=== PATIENT | female | born 1940 | race Caucasian/White ===

== ENCOUNTER 2022-02-11 14:34 | Inpatient (IN) | payer MEDICARE, BC ==
[~2022-02-11] VITALS: Ht 154.9 cm; Wt 58.5 kg
--- NOTE | 2022-02-11 14:50 | NUR ---
BIB FAMILY C/O GENERALIZED WEAKNESS, WAS HAVING CHILLS ON THE WAY TO MD APPOINTMENT
[2022-02-11] MEDS ORDERED: ACETAMINOPHEN 325 MG TABLET PO ONE (15:30)
[2022-02-11] MEDS ORDERED: IBUPROFEN 600 MG TABLET PO ONE (15:30)
[2022-02-11] MEDS ORDERED: IV NS 0.9% 1,000 ML BAG IV ONE (15:30)
[2022-02-11 16:26] LABS: BASOPHILS # (AUTO) 0.1 K/uL (0.0-0.2); BASOPHILS % (AUTO) 0.8 % (0.0-2.0); EOSINOPHILS % (AUTO) 0.2 % (0.0-6.0); HEMATOCRIT 35 % (33-45); HEMOGLOBIN 11.7 g/dL (11.5-14.8); LYMPHOCYTES # (AUTO) 0.2 K/uL (0.8-4.8); LYMPHOCYTES % (AUTO) 2.1 % (20.0-44.0); MEAN CORPUSCULAR HGB CONC 33 g/dl (31.0-36.0); MEAN CORPUSCULAR VOLUME 107 fL (82-100); MONOCYTES # (AUTO) 1.1 K/uL (0.1-1.30); MONOCYTES % (AUTO) 10.5 % (2.0-12.0); NEUTROPHILS # (AUTO) 8.8 K/uL (1.8-8.9); NEUTROPHILS % (AUTO) 86.4 % (43.0-81.0); PLATELET COUNT (AUTO) 168 K/uL (150-450); RED BLOOD CELL COUNT(AUTO) 3.32 MIL/uL (4.0-5.2); WHITE BLOOD COUNT (AUTO) 10.2 K/uL (4.3-11.0)
[2022-02-11] MEDS ORDERED: IBUPROFEN 600 MG TABLET ONE (16:42)
[2022-02-11] MEDS ORDERED: ACETAMINOPHEN 325 MG TABLET ONE (16:42)
[2022-02-11 16:47] LABS: ALANINE AMINOTRANSFERASE 93 U/L (12-78); ALBUMIN 2.4 g/dL (3.4-5.0); ALKALINE PHOSPHATASE 315 U/L (46-116); ASPARTATE AMINOTRANSFERASE 45 U/L (15-37); BILIRUBIN,DIRECT 2.5 mg/dL (0.0-0.2); BILIRUBIN,TOTAL 3.5 mg/dL (0.2-1.0); CALCIUM, SERUM 9.1 mg/dL (8.5-10.1); CARBON DIOXIDE 32 mmol/L (21-32); CHLORIDE 100 mmol/L (98-107); CREATININE 0.7 mg/dL (0.6-1.3); GLUCOSE 120 mg/dL (74-106); POTASSIUM 3.6 mmol/L (3.5-5.1); SODIUM SERUM 134 mmol/L (136-145); TOTAL PROTEIN, SERUM 5.8 g/dL (6.4-8.2); UREA NITROGEN, BLOOD 14 mg/dL (7-18)
--- NOTE | 2022-02-11 19:28 | NUR ---
PT REFUSED IN AND OUT CATHETER.
[2022-02-11 19:51] LABS: SERUM AMMONIA 68 umol/L (11-32)
--- NOTE | 2022-02-11 20:11 | NUR ---
ATTILA OF GALLBLADDER DONE AT BEDSIDE
[2022-02-11 20:27] LABS: LIPASE 68 U/L (73-393)
--- NOTE | 2022-02-11 23:11 | NUR ---
REPORT GIVEN TO LEILANI COURTNEY
[2022-02-11] MEDS ORDERED: MAGNESIUM HYDROXIDE 30 ML UDC PO PRN (23:30)
[2022-02-11] MEDS ORDERED: Z GUARD REMEDY 4 OZ OINT TP PRN (23:30)
[2022-02-11] MEDS ORDERED: MAG HYDROX/AL HYDROX/SIMETH 30 ML UDC PO PRN (23:30)
--- NOTE | 2022-02-11 23:52 | NUR ---
TRANSFERRED PT TO ROOM
--- NOTE | 2022-02-11 23:55 | NUR ---
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 Patient with eyes closed but able to answer simple questions. Totally dependent on all aspects of ADLs. On room air with O2 saturation of 96%. Vital signs taken and recorded. Noted with low grade fever 100.3. Admission care and skin assessment done. Noted with blanchable redness on coccyx area. Right chest wall port a cath intact with clean dressing. Noted with edema on left arm and bilateral lower extremities. Bed bath provided. Turned and repositioned for skin management. Call light placed within reach, bed alarm turned on for safety.
[2022-02-12] VITALS: BP 132/78
--- NOTE | 2022-02-12 00:25 | NUR ---
0025 Dr. Hogan at bedside and assessed patient, made her aware patient has no peripheral IV access with order to use right chest port a cath as IV access for now.
[2022-02-12] MEDS: IV NS 0.9% 1,000 ML IV PRN ×2 (00:38→18:41)
[2022-02-12] MEDS: ENOXAPARIN SODIUM 40 MG/0.4 ML DISP.SYRIN SQ SCH ×2 (00:40→22:04)
[2022-02-12] MEDS ORDERED: LACTULOSE 10 G/15 ML UDC (PYXIS) PO ONE (01:00)
--- NOTE | 2022-02-12 06:44 | NUR ---
MS RN CLOSING NOTES - PATIENT IN BED SLEEPING, EASY TO AROUSE. A/O X1, NEEDS FREQUENT REORIENTATION. ABLE TO VERBALIZE NEEDS. BREATHING EVEN AND NON-LABORED ON ROOM AIR. NO ACUTE EVENTS THROUGHOUT THE NIGHT. DENIES PAIN AT THIS TIME. AFEBRILE. NO IV ACCESS. HAS RIGHT CHEST WALL PORT-A-CATH WITH NS RUNNING AT 75 ML/HR. INTACT, PATENT AND FLUSHING. DRESSING C/D/I. ABLE TO AMBULATE TO RESTROOM WITH STAND BY ASSIST. ALL DUE MEDS GIVEN AND NEEDS ATTENDED. SAFETY PRECAUTIONS IN PLACE: BED LOCKED AND IN LOW POSITION, SIDE RAILS UP X3, CALL LIGHT WITHIN REACH. WILL ENDORSE TO NEXT SHIFT FOR CONTINUITY OF CARE.
[2022-02-12 07:25] LABS: BASOPHILS % (AUTO) 0.1 % (0.0-2.0); EOSINOPHILS % (AUTO) 0.1 % (0.0-6.0); HEMATOCRIT 34 % (33-45); HEMOGLOBIN 11.2 g/dL (11.5-14.8); LYMPHOCYTES # (AUTO) 0.3 K/uL (0.8-4.8); LYMPHOCYTES % (AUTO) 3.7 % (20.0-44.0); MEAN CORPUSCULAR HGB CONC 33 g/dl (31.0-36.0); MEAN CORPUSCULAR VOLUME 107 fL (82-100); MONOCYTES % (AUTO) 12.6 % (2.0-12.0); NEUTROPHILS # (AUTO) 6.8 K/uL (1.8-8.9); NEUTROPHILS % (AUTO) 83.5 % (43.0-81.0); PLATELET COUNT (AUTO) 173 K/uL (150-450); RED BLOOD CELL COUNT(AUTO) 3.15 MIL/uL (4.0-5.2); WHITE BLOOD COUNT (AUTO) 8.1 K/uL (4.3-11.0)
[2022-02-12 07:33] LABS: SERUM AMMONIA 28 umol/L (11-32)
[2022-02-12 07:49] LABS: ALANINE AMINOTRANSFERASE 78 U/L (12-78); ALBUMIN 2.1 g/dL (3.4-5.0); ALKALINE PHOSPHATASE 278 U/L (46-116); ASPARTATE AMINOTRANSFERASE 39 U/L (15-37); BILIRUBIN,DIRECT 2.5 mg/dL (0.0-0.2); BILIRUBIN,TOTAL 3.4 mg/dL (0.2-1.0); CALCIUM, SERUM 8.5 mg/dL (8.5-10.1); CARBON DIOXIDE 29 mmol/L (21-32); CHLORIDE 104 mmol/L (98-107); CREATININE 0.8 mg/dL (0.6-1.3); GLUCOSE 133 mg/dL (74-106); PHOSPHORUS 2.9 mg/dL (2.5-4.9); POTASSIUM 3.7 mmol/L (3.5-5.1); SODIUM SERUM 137 mmol/L (136-145); TOTAL PROTEIN, SERUM 5.4 g/dL (6.4-8.2); UREA NITROGEN, BLOOD 12 mg/dL (7-18)
--- NOTE | 2022-02-12 07:50 | NUR ---
SPRAY APPLICATOR NOTES Received pt awake in bed AOx1. No signs of plain or discomfort at this time. Pt is on RA and tolerating it welll with 02 saturation at 97%. IV access on R chest wall permacath running NS at 75cc/hr patent and intact. HOB elevated to pts comfort. Siderails up at all times. Call light within reach,. Will anticipate needs.
[2022-02-12] MEDS: PANTOPRAZOLE 40 MG TABLET.DR PO SCH (08:16)
[2022-02-12 08:17] LABS: THYROID STIMULATING HORMONE 2.178 uIU/mL (0.358-3.74)
[2022-02-12] MEDS ORDERED: POTA-88 PO (08:30)
[2022-02-12] MEDS ORDERED: APIX5TAB PO (08:30)
[2022-02-12] MEDS ORDERED: RISP0.2515 PO (08:30)
[2022-02-12] MEDS ORDERED: MEMA28CA PO (08:30)
[2022-02-12] MEDS ORDERED: METO-358 PO (08:30)
[2022-02-12] MEDS ORDERED: FURO20TA4 PO (08:30)
[2022-02-12] MEDS ORDERED: ONDA8TAB65 PO (08:30)
--- NOTE | 2022-02-12 12:23 | NUR ---
FARM REPORTER NOTES PATIENT OUT TO MRI.
--- NOTE | 2022-02-12 13:10 | NUR ---
RN NOTES PATIENT BACK FROM MRI, ECHO DONE. PLAN OF CARE CONTINUED.
--- NOTE | 2022-02-12 14:00 | NUR ---
RN NOTES URINE SAMPLE COLLECTED, PLACED IN THE FRIDGE AND CALLED LAB FOR COUNTER MAKER. PLAN OF CARE CONTINUE.
--- NOTE | 2022-02-12 15:00 | NUR ---
RN NOTES PATIENT NOTED WITH SHIVERING, NO FEVER NOTED, DR. GELLER NOTIFIED, NO NEW ORDER.
[2022-02-12 17:08] LABS: BILIRUBIN,URINE 2+ (NEGATIVE); COLOR,URINE YELLOW (YELLOW); LEUKOCYTE ESTERASE ,URINE NEGATIVE (NEGATIVE); NITRITE, URINE NEGATIVE (NEGATIVE); PH,URINE 6.5 (5.0-8.0); PROTEIN,URINE 2+ mg/dl (NEGATIVE); UGLUCOSE TRACE mg/dL (NEGATIVE); UROBILINOGEN,URINE >=8.0 EU/dL (0.2)
--- NOTE | 2022-02-12 17:19 | NUR ---
RN NOTES UA RESULTS RECEIVED DR. GELLER NOTIFIED, NO NEW ORDER, ID AND GI CONSULT PLACED. PLAN OF CARE CONTINUE. Addendum: 02/12/22 at 1721 by WAYLON ROMANO RN NO SHIVERING EPISODED NOTED AT THIS TIME.
--- NOTE | 2022-02-12 17:22 | NUR ---
VICTORINA NOTES Pt started HD. Addendum: 02/12/22 at 1828 by HASMUKH MAN LVN Accidentally input on wrong pt. Pt is not on HD.
[2022-02-12] MEDS: ONDANSETRON HCL/PF 4 MG/2 ML VIAL IVP PRN (18:01)
--- NOTE | 2022-02-12 18:28 | NUR ---
REGIONAL ACCOUNT DIRECTOR CLOSING NOTES Pt remains in stable condition. Restraints taken off due to son at bedside watching her. No complaints of pain or discomfort at this time. IV access on FATEMEH midline patent and intact. Pt is on room air and tolerating it well. HOB elevated to 30-45 degrees. Siderails up at all times and on its lowest setting and locked. Call light within reach. Will endorse to oncoming nurse.
--- NOTE | 2022-02-12 19:00 | NUR ---
RN NOTES: RECEIVED AWAKE ON BED, HIGH FOWLERS POSITION, PRESENT AT BED SIDE, DIALYSIS IS ON GOING VIA PORT A CATH ON THE RIGHT CHEST WALL, DRESSING IS DRY AND INTACT, A/O TO SELF ONLY, [place] SPEAKING, RESPOND YES OR NO, RARELY COMMUNICATE VERBALLY,ON ROOM AIR, SPO2-97%,NON LABORED BREATHING, NO SOB, EDEMA ON BUE AND BLE, SHE HAS SACRAL REDNESS PER ENDORSEMENT, FOR LABS IN THE MORNING,FATEMEH ML INTACT. FOR POSSIBLE EGD WITH PEG INSERTION, STILL AWAITING FOR CONFIRMATION, TO OBTAIN CONSENT. Addendum: 02/13/22 at 0031 by ECHO ESCAMILLA RN ADDED NOTES: PER MORNING ENDORSEMENT HE IS FOR PEG INSERTION TOMORROW AT 11AM,TO GET CONSENT FROM . Addendum: 02/13/22 at 0216 by ECHO ESCAMILLA RN ADDED NOTES: WRONG ENTRY OF CHARTING FOR 111 NOT 104.
--- NOTE | 2022-02-12 19:01 | NUR ---
RN NOTES: RECEIVED AWAKE ON BED, A/OX 1 ONLY DUE TO DEMENTIA, ORIENTED TO UNIT AND STAFF, SON PRESENT AT BED SIDE UPON ENDORSEMENT, ON CONTATC AND DROPLET PRECAUTION DUE TO SUSPECTED FOR COVID 19, RAPID(-), PCR RESULT PENDING, ON RA 98%M PORT A CATH NEEDLE FOR REINSERTION BY CN IN MORNING SHIFT(FOR HER CHEMO TREATMENT), FATEMEH ML G#18 PATENT,IVF NS AT 75 ML/HR ONGOING, NO BP, NO IV CANULATION ON LEFT ARM, BILATERAL RESTRAINT REMOVE TEMPORARILY WHILE SON IS PRESENT,ABLE TO AMBULATE WITH ASSIST, PENDING GI AND ID CONSULT.FOR POSSIBLE D/C TOMORROW.
[2022-02-12 20:00] VITALS: BP 125/82
--- NOTE | 2022-02-12 20:22 | NUR ---
RN NOTES: AROUND 1933 ERIC-DIALYSIS NURSE REQUEST TO PULL OUT NS FROM [place] TO USE FOR PATIENT DIALYSIS-TAKEN BY RN FROM [facility] AND GIVEN TO DIALYSIS NURSE. Addendum: 02/12/22 at 2027 by ECHO ESCAMILLA RN WRONG ENTRY NOT FOR THIS PATIENT ITS FOR 111
--- NOTE | 2022-02-12 20:25 | NUR ---
RN NOTES: 1936PM DIALYSIS COMPLETED, OUTPUT-2 LITERS OSITO-150/70 TN-94 PATIENT IS STABLE DUE FOR ANOTHER SESSION TOMORRO WEDNESDAY. Addendum: 02/12/22 at 2028 by ECHO ESCAMILLA RN WRONG ENTRY NOT FOR THIS PATIENT IS FOR 111
--- NOTE | 2022-02-12 20:37 | NUR ---
RN NOTES: ID CAME TO SEE THE PATIENT, PCR RESULT IS (-) PER CN.
--- NOTE | 2022-02-12 21:55 | NUR ---
RN NOTES: ASSISTED TO THE BATHROOM, SHE PEE,IVF RESUMED AFTER, THEN SOFT RESTRAINED IN PLACE AFTER HIS SON LEFT AWHILE AGO.ON CLOSE VISUAL CHECK, A/OX1 ONLY, WITH PERIODS OF CONFUSION.
[2022-02-12] MEDS ORDERED: MEROPENEM 500 MG in IV NS 0.9% 50 ML IV ONE (22:00)
[2022-02-12] MEDS ORDERED: MEROPENEM 500 MG VIAL IV ONE (22:18)
--- NOTE | 2022-02-12 22:23 | NUR ---
RN NOTES: NEW ORDER TO GIVE MERRIM 500 MG, CN MADE AWARE. -MEDICATION PULLED IN THE OMNICEL BY CHARGE NURSE AND NSG HOCKEY INSTRUCTOR, TO BE MIX IN 50 ML OF NS, PULLED OUT IN THE IV OMNICELL NS 100ML IS AVAILABLE ONLY, CN MADE AWARE AND REMOVE 50 ML THEN MIX, SHOWN TO CN. -FIRST DOSE GIVEN MERRIN 500 MG MIX IN NS 50 ML OF NS AT 100ML/HR VIA INFUSION PUMP.
--- NOTE | 2022-02-13 02:13 | NUR ---
RN NOTES: AWAKE, ASSISTED TO BED SIDE COMMODE, PEE VERY LITTLE, IVF ONGOING, REMOVE SOFT RESTRAINT IN BETWEEN, COOPERATIVE TO CARE, NOT PULLING OUT HER IV CANNULA, CLEAN AND CHANGE.
[2022-02-13 04:00] VITALS: BP 138/65
--- NOTE | 2022-02-13 04:46 | NUR ---
RN NOTES: AWAKE IN BETWEEN, TRYING TO GTE UP FROM HER BED, SHE REFUSED FOR SOFT RESTRAINT SHE GET AGITATED SHE WANT IT TO BE REMOVE, SHE AGREE NOT TO GET UP LONG RESTRAINT IS REMOVED, BED ALARM ON, UNABLE TO RETAIN INFORMATION SECONDARY TO DEMENTIA. ON CLOSE VISUAL CHECK.
[2022-02-13 06:21] LABS: BASOPHILS % (AUTO) 0.1 % (0.0-2.0); EOSINOPHILS % (AUTO) 0.2 % (0.0-6.0); HEMATOCRIT 33 % (33-45); HEMOGLOBIN 10.9 g/dL (11.5-14.8); LYMPHOCYTES # (AUTO) 0.4 K/uL (0.8-4.8); LYMPHOCYTES % (AUTO) 4.3 % (20.0-44.0); MEAN CORPUSCULAR HGB CONC 33 g/dl (31.0-36.0); MEAN CORPUSCULAR VOLUME 108 fL (82-100); MONOCYTES # (AUTO) 1.6 K/uL (0.1-1.30); NEUTROPHILS # (AUTO) 7.8 K/uL (1.8-8.9); NEUTROPHILS % (AUTO) 79.4 % (43.0-81.0); PLATELET COUNT (AUTO) 166 K/uL (150-450); RED BLOOD CELL COUNT(AUTO) 3.04 MIL/uL (4.0-5.2); WHITE BLOOD COUNT (AUTO) 9.8 K/uL (4.3-11.0)
--- NOTE | 2022-02-13 06:37 | NUR ---
RN NOTES: AWAKE IN BETWEEN, IVF ONGOING, NO COMPLAINTS OF ANY PAIN OR DISCOMFORT, ABLE TO WALK GOING TO THE BATHROOM, NO SYNCOPE ATTACK, NO LABS IN THE MORNING, ON CLOSE WATCH, ENDORSED FOR CONTINUITY OF CARE.
[2022-02-13 07:10] LABS: CALCIUM, SERUM 8.5 mg/dL (8.5-10.1); CREATININE 0.7 mg/dL (0.6-1.3); MAGNESIUM 2.2 mg/dL (1.8-2.4); PHOSPHORUS 2.4 mg/dL (2.5-4.9); POTASSIUM 3.4 mmol/L (3.5-5.1)
--- NOTE | 2022-02-13 07:17 | NUR ---
RN OPENING NOTES Received pt awake in bed AOx1, No signs of ling n or discomfort at this time. Pt is on RA and tolerating it well, no sob noted, respiration even and unlabored. FATEMEH MIDLINE NOTED PATENT AND INTACT, WITH IV NS RUNNING AT 75ML/HR. HOB elevated to patient comfort. Siderails up at all times. BED ALARM ON. Call light within reach. PLAN OF CARE CONTINUE.
[2022-02-13] MEDS: PANTOPRAZOLE 40 MG TABLET.DR PO SCH (07:41)
[2022-02-13] MEDS: IV NS 0.9% 1,000 ML IV PRN (09:49)
[2022-02-13] MEDS ORDERED: POTASSIUM CHLORIDE 20 MEQ TAB.PRT.SR PO SCH (10:30)
--- NOTE | 2022-02-13 10:40 | NUR ---
DR. TREVINO AT THE BEDSIDE, VERBALLY ORDER TO HOLD ELIQUIS DUE TO PATIENT MIGHT HAVE BILIARY STENT REPLACEMENT, NOTED AND CARRIED OUT. WILL ENDORSE TO COUNTERSINKER BALANCE SCREW HOLE NURSE.
[2022-02-13] MEDS: MEROPENEM 500 MG in IV NS 0.9% 50 ML IV SCH ×2 (13:00→20:40)
[2022-02-13 13:23] VITALS: BP 148/85
[2022-02-13] MEDS: ACETAMINOPHEN 325 MG TABLET PO PRN (15:21)
[2022-02-13] MEDS ORDERED: K PHOS NEUTRAL 250 MG TABLET PO ONE (16:00)
[2022-02-13] MEDS: APIXABAN 5 MG TABLET PO SCH (16:03)
[2022-02-13] MEDS: risperiDONE 0.25 MG TABLET PO SCH (16:07)
[2022-02-13] MEDS: MEMANTINE HCL 5 MG TABLET PO SCH (16:07)
[2022-02-13] MEDS: METOPROLOL SUCCINATE 50 MG TAB.SR.24H PO SCH (16:19)
--- NOTE | 2022-02-13 17:00 | NUR ---
HELD 1700 ELIQUIS DUE PER MD'S ORDER.
[2022-02-13] MEDS: POTASSIUM CHLORIDE 20 MEQ TAB.PRT.SR PO SCH (17:07)
[2022-02-13] MEDS: FUROSEMIDE 20 MG TABLET PO SCH (17:07)
--- NOTE | 2022-02-13 18:08 | NUR ---
RN CLOSING NOTES PATIENT IN BED AWAKE, SON AT THE BEDSIDE, No signs of ling n or discomfort at this time. Pt is on RA and tolerating it well, no sob noted, respiration even and unlabored. FATEMEH MIDLINE NOTED PATENT AND INTACT, FLUSHES WELL, WITH IV NS RUNNING AT 75ML/HR. HOB elevated to patient comfort. Siderails up at all times. BED ALARM ON. Call light within reach. WILL ENDORSE TO NIGHT NURSE FOR JOHN.
--- NOTE | 2022-02-13 20:11 | NUR ---
RN OPENING NOTE PATIENT SLEEPING IN BED, ALERT TO NAME, CONFUSED, SON WAS AT BEDSIDE BUT LEFT. PT STABLE ON RA, NO S/S OF DISTRESS OR SOB NOTED, BREATHING EVEN AND UNLABORED. IV ACCESS ON FATEMEH ML INTACT AND INFUSING NS @ 75 ML/HR. SAFETY MEASURES IN PLACE: CALL LIGHT WITHIN REACH, SIDE RAILS UP X 3, BED LOCKED IN LOWEST POSITION, HOB ELEVATED, BED ALARM ON. WILL CONTINUE TO MONITOR PATIENT
[2022-02-13 20:33] VITALS: BP 113/79
[2022-02-13] MEDS: ZOLPIDEM TARTRATE 5 MG TABLET PO PRN (22:23)
--- NOTE | 2022-02-14 00:20 | NUR ---
RN NOTE LAB CALLED REGARDING BLOOD CULTURES ON 02/12 AT 2240. AEROBIC AND ANAEROBIC GROWING GRAM NEGATIVE ORGANISMS. NOTIFIED FIRE ADJUSTER JENIFER CEBALLOS, NO NEW ORDERS AT THIS TIME
[2022-02-14 04:00] VITALS: BP 140/86
[2022-02-14] MEDS: MEROPENEM 500 MG in IV NS 0.9% 50 ML IV SCH ×3 (05:34→21:00)
[2022-02-14 05:40] LABS: BAND % (MANUAL) 4 % (0.0-5.0); EOSINOPHILS % (MANUAL) 0 % (0-4); LYMPHOCYTES % (MANUAL) 3 % (16-48); MONOCYTES % (MANUAL) 15 % (0-11.0); NEUTROPHILS % (MANUAL) 78 (42-76)
[2022-02-14 05:49] LABS: BASOPHILS % (AUTO) 0.2 % (0.0-2.0); EOSINOPHILS % (AUTO) 0.3 % (0.0-6.0); HEMATOCRIT 37 % (33-45); HEMOGLOBIN 12.3 g/dL (11.5-14.8); LYMPHOCYTES # (AUTO) 0.4 K/uL (0.8-4.8); LYMPHOCYTES % (AUTO) 4.4 % (20.0-44.0); MEAN CORPUSCULAR HGB CONC 33 g/dl (31.0-36.0); MEAN CORPUSCULAR VOLUME 107 fL (82-100); MONOCYTES # (AUTO) 1.6 K/uL (0.1-1.30); MONOCYTES % (AUTO) 17.4 % (2.0-12.0); NEUTROPHILS # (AUTO) 7.2 K/uL (1.8-8.9); NEUTROPHILS % (AUTO) 77.7 % (43.0-81.0); PLATELET COUNT (AUTO) 210 K/uL (150-450); RED BLOOD CELL COUNT(AUTO) 3.46 MIL/uL (4.0-5.2); WHITE BLOOD COUNT (AUTO) 9.2 K/uL (4.3-11.0)
[2022-02-14 06:06] LABS: ALBUMIN 2.3 g/dL (3.4-5.0); BILIRUBIN,DIRECT 2.3 mg/dL (0.0-0.2); CALCIUM, SERUM 8.4 mg/dL (8.5-10.1); CREATININE 0.7 mg/dL (0.6-1.3); MAGNESIUM 1.8 mg/dL (1.8-2.4); PHOSPHORUS 2.7 mg/dL (2.5-4.9); POTASSIUM 3.4 mmol/L (3.5-5.1)
--- NOTE | 2022-02-14 07:46 | NUR ---
MS RN CLOSING NOTE PATIENT AWAKE IN BED, ALERT TO NAME, CONFUSED, PT CONTINUOUSLY GETTING OUT OF BED ALL SHIFT, VERY FORGETFUL. PT STABLE ON RA, NO S/S OF DISTRESS OR SOB NOTED, BREATHING EVEN AND UNLABORED. IV ACCESS ON FATEMEH ML INTACT AND INFUSING NS @ 75 ML/HR. MEDICATIONS GIVEN ORDERED, PT NEEDS MET THROUGHOTU SHIFT. SAFETY MEASURES IN PLACE: CALL LIGHT WITHIN REACH, SIDE RAILS UP X 3, BED LOCKED IN LOWEST POSITION, HOB ELEVATED, BED ALARM ON. ENDORSED TO DAYSHIFT RN FOR CONTINUITY OF CARE
--- NOTE | 2022-02-14 07:48 | NUR ---
ms rn received on bed, awake,confuse,not in any form of distress, respirations even and unlabored,no sob noted, lungs are clear,abdomen soft,positve bowel sounds,denies pain at this time, will monitor patient's condition,all needs attended.
[2022-02-14 08:00] VITALS: BP 127/87
[2022-02-14] MEDS: APIXABAN 5 MG TABLET PO SCH ×2 (08:26→16:41)
[2022-02-14] MEDS: MEMANTINE HCL 5 MG TABLET PO SCH ×2 (08:29→18:09)
[2022-02-14] MEDS: risperiDONE 0.25 MG TABLET PO SCH ×2 (08:29→18:11)
[2022-02-14] MEDS: PANTOPRAZOLE 40 MG TABLET.DR PO SCH (08:29)
[2022-02-14] MEDS: METOPROLOL SUCCINATE 50 MG TAB.SR.24H PO SCH (08:30)
[2022-02-14] MEDS ORDERED: METOPROLOL SUCCINATE 50 MG TAB.SR.24H PO SCH (09:00)
--- NOTE | 2022-02-14 09:00 | NUR ---
ms shawn mendez served,due meds given,tolerated well.son at bedside.
[2022-02-14 09:17] LABS: BAND % (MANUAL) 3 % (0.0-5.0); BASOPHILS % (MANUAL) 0 % (0.0-2.0); EOSINOPHILS % (MANUAL) 4 % (0-4); LYMPHOCYTES % (MANUAL) 9 % (16-48); MONOCYTES % (MANUAL) 6 % (0-11.0); NEUTROPHILS % (MANUAL) 78 (42-76)
[2022-02-14 12:00] VITALS: BP 148/92
--- NOTE | 2022-02-14 14:04 | NUR ---
patient confused,pulled iv out,unable to ff commands.per md jones,nursing sup notified,fall risk precaution observed.
--- NOTE | 2022-02-14 17:00 | NUR ---
ms rn new midline inserted at right upper arm, patient started on bilateral soft wrist restraint, son aware.
[2022-02-14] MEDS: FUROSEMIDE 20 MG TABLET PO SCH (18:09)
[2022-02-14] MEDS: POTASSIUM CHLORIDE 20 MEQ TAB.PRT.SR PO SCH (18:09)
--- NOTE | 2022-02-14 18:18 | NUR ---
ms rn patient on bed, no distress noted.
--- NOTE | 2022-02-14 19:51 | NUR ---
noc rn opening note received patient in bed alert and oriented to self. bilateral soft wrist restraints in place. left arm noted to be swollen. no fluids running at this time on r.ua midline. denies any pain at this time. safety in place. will continue with the plan of care for patient.
[2022-02-14 20:00] VITALS: BP 145/87
[2022-02-14] MEDS: ZOLPIDEM TARTRATE 5 MG TABLET PO PRN (22:02)
--- NOTE | 2022-02-14 22:03 | NUR ---
noc rn note patient agreed on taking ambien per nurse clinical assessment. given ambien 5mg as ordered PRN. Patient restraints taken off for now and will monitor.
[2022-02-15 04:00] VITALS: BP 149/90
[2022-02-15] MEDS: MEROPENEM 500 MG in IV NS 0.9% 50 ML IV SCH ×3 (05:13→20:07)
[2022-02-15 06:15] LABS: BASOPHILS % (AUTO) 0.2 % (0.0-2.0); EOSINOPHILS % (AUTO) 0.2 % (0.0-6.0); HEMATOCRIT 32 % (33-45); HEMOGLOBIN 10.7 g/dL (11.5-14.8); LYMPHOCYTES # (AUTO) 0.5 K/uL (0.8-4.8); LYMPHOCYTES % (AUTO) 6.4 % (20.0-44.0); MEAN CORPUSCULAR HGB CONC 34 g/dl (31.0-36.0); MEAN CORPUSCULAR VOLUME 107 fL (82-100); MONOCYTES # (AUTO) 1.3 K/uL (0.1-1.30); MONOCYTES % (AUTO) 16.3 % (2.0-12.0); NEUTROPHILS # (AUTO) 6.1 K/uL (1.8-8.9); NEUTROPHILS % (AUTO) 76.9 % (43.0-81.0); PLATELET COUNT (AUTO) 145 K/uL (150-450); RED BLOOD CELL COUNT(AUTO) 2.97 MIL/uL (4.0-5.2)
[2022-02-15 06:48] LABS: ALANINE AMINOTRANSFERASE 49 U/L (12-78); ALBUMIN 1.7 g/dL (3.4-5.0); ALKALINE PHOSPHATASE 232 U/L (46-116); ASPARTATE AMINOTRANSFERASE 96 U/L (15-37); BILIRUBIN,TOTAL 2.6 mg/dL (0.2-1.0); CALCIUM, SERUM 7.7 mg/dL (8.5-10.1); CARBON DIOXIDE 25 mmol/L (21-32); CHLORIDE 104 mmol/L (98-107); CREATININE 0.5 mg/dL (0.6-1.3); GLUCOSE 102 mg/dL (74-106); MAGNESIUM 1.8 mg/dL (1.8-2.4); PHOSPHORUS 2.8 mg/dL (2.5-4.9); POTASSIUM 5.1 mmol/L (3.5-5.1); SODIUM SERUM 136 mmol/L (136-145); TOTAL PROTEIN, SERUM 5.3 g/dL (6.4-8.2); UREA NITROGEN, BLOOD 9 mg/dL (7-18)
--- NOTE | 2022-02-15 06:48 | NUR ---
noc rn note patient in bed with eyes closed, easy to arouse. no s/s of apparent distress on room air. no c/o pain at this time. on restraint vacation at this time. no fluids running at this time. all needs attended. all scheduled medication administered. safety kept in place the whole shift. will endorse to morning shift RN for continuity of patient care.
--- NOTE | 2022-02-15 07:30 | NUR ---
RN OPENING NOTE PATIENT AWAKE, ALERT TO NAME, CONFUSED. PT STABLE ON RA, NO S/S OF DISTRESS OR SOB NOTED, BREATHING EVEN AND UNLABORED. IV ACCESS ON FATEMEH ML INTACT. RESTRAINT NOT IN PLACED. SAFETY MEASURES IN PLACE: CALL LIGHT WITHIN REACH, SIDE RAILS UP X 3, BED LOCKED IN LOWEST POSITION, HOB ELEVATED, BED ALARM ON. PLAN OF CARE CONTINUE.
[2022-02-15] MEDS: PANTOPRAZOLE 40 MG TABLET.DR PO SCH (07:47)
[2022-02-15] MEDS: APIXABAN 5 MG TABLET PO SCH ×2 (08:05→16:01)
[2022-02-15] MEDS: MEMANTINE HCL 5 MG TABLET PO SCH ×2 (08:05→16:45)
[2022-02-15] MEDS: risperiDONE 0.25 MG TABLET PO SCH ×2 (08:05→16:45)
[2022-02-15] MEDS: METOPROLOL SUCCINATE 50 MG TAB.SR.24H PO SCH (08:05)
[2022-02-15 10:36] LABS: BAND % (MANUAL) 1 % (0.0-5.0); BASOPHILS % (MANUAL) 0 % (0.0-2.0); EOSINOPHILS % (MANUAL) 0 % (0-4); LYMPHOCYTES % (MANUAL) 8 % (16-48); MONOCYTES % (MANUAL) 21 % (0-11.0); NEUTROPHILS % (MANUAL) 70 (42-76)
[2022-02-15 16:00] VITALS: BP 144/88
[2022-02-15] MEDS: POTASSIUM CHLORIDE 20 MEQ TAB.PRT.SR PO SCH (17:04)
[2022-02-15] MEDS: FUROSEMIDE 20 MG TABLET PO SCH (17:05)
[2022-02-15] MEDS: ACETAMINOPHEN 325 MG TABLET PO PRN (17:52)
[2022-02-15] MEDS: ONDANSETRON HCL/PF 4 MG/2 ML VIAL IVP PRN (17:52)
--- NOTE | 2022-02-15 18:16 | NUR ---
RN CLOSING NOTE PATIENT AWAKE, ALERT TO NAME, CONFUSED, SON AT THE BEDSIDE, EPISODES OF WANTING TO WANDER AROUND, REDIRECT PATIENT. PT STABLE ON RA, NO S/S OF DISTRESS OR SOB NOTED, BREATHING EVEN AND UNLABORED. IV ACCESS ON FATEMEH ML PATENT AND INTACT, FLUSHES WELL. RESTRAINT NOT IN PLACED. SAFETY MEASURES IN PLACE: CALL LIGHT WITHIN REACH, SIDE RAILS UP X 3, BED LOCKED IN LOWEST POSITION, HOB ELEVATED, BED ALARM ON. WILL ENDORSE TO HAT STOCK LAMINATING MACHINE OPERATOR NURSE FOR JOHN.
--- NOTE | 2022-02-15 19:30 | NUR ---
MS RN OPENING NOTES - RECEIVED PATIENT SLEEPING, EASY TO AROUSE. SON ON BEDSIDE. A/O X1, CONFUSED. BREATHING EVEN AND NON-LABORED ON ROOM AIR. NOT IN APPARENT DISTRESS. NO C/O PAIN OR DISCOMFORT AT THIS TIME. HAS RIGHT UPPER ARM MIDLINE #18G AND SALINE LOCKED. NO S/S OF INFILTRATION NOTED. SAFETY PRECAUTIONS IN PLACE: BED LOCKED AND IN LOW POSITION, SIDE RAILS UP X3, BED ALARM ON, CALL LIGHT WITHIN REACH. WILL CONTINUE PLAN OF CARE.
[2022-02-15 20:00] VITALS: BP 111/60
[2022-02-16 04:00] VITALS: BP 147/77
[2022-02-16] MEDS: MEROPENEM 500 MG in IV NS 0.9% 50 ML IV SCH ×2 (04:10→12:27)
--- NOTE | 2022-02-16 06:48 | NUR ---
MS RN CLOSING NOTES - PATIENT AWAKE, GETTING OUT OF BED. FREQUENT RE-ORIENTATION NEEDED. NO SOB OR NOTED. SATURATING AT 97% IN ROOM AIR. NOT IN CARDIAC OR RESPIRATORY DISTRESS. DENIES PAIN AT THIS TIME. AFEBRILE. RIGHT UPPER ARM MIDLINE #18G INTACT, PATENT AND FLUSHING. ENCOURAGED TO INCREASE FOOD AND WATER INTAKE. ALL DUE MEDS GIVEN AND NEEDS ATTENDED. SAFETY PRECAUTIONS MAINTAINED. WILL ENDORSE TO NEXT SHIFT FOR CONTINUITY OF CARE.
--- NOTE | 2022-02-16 07:05 | NUR ---
TRANSPORT ENGINEER OPENING NOTES Received pt awake in bed AOX2. No complaints of pain or discomfort at this time. Pt is on room air and tolerating it well. IV access on FATEMEH midline SL patent and intact. Pt is PO and receives meds orally. HOB elevated to pts comfort. Siderails up x2. Bed at its lowest setting and locked. Placed call light within reach. Will anticipate needs.
[2022-02-16 07:35] LABS: ALBUMIN 2.2 g/dL (3.4-5.0); BILIRUBIN,TOTAL 2.6 mg/dL (0.2-1.0); CALCIUM, SERUM 8.4 mg/dL (8.5-10.1); CREATININE 0.8 mg/dL (0.6-1.3); MAGNESIUM 1.8 mg/dL (1.8-2.4); PHOSPHORUS 2.7 mg/dL (2.5-4.9); POTASSIUM 3.5 mmol/L (3.5-5.1); TOTAL PROTEIN, SERUM 5.7 g/dL (6.4-8.2)
[2022-02-16] MEDS: PANTOPRAZOLE 40 MG TABLET.DR PO SCH (07:36)
[2022-02-16] MEDS: ONDANSETRON HCL/PF 4 MG/2 ML VIAL IVP PRN (07:41)
[2022-02-16 08:00] VITALS: BP 152/99
[2022-02-16] MEDS: risperiDONE 0.25 MG TABLET PO SCH (08:04)
[2022-02-16] MEDS: MEMANTINE HCL 5 MG TABLET PO SCH (08:04)
[2022-02-16 08:05] VITALS: BP 152/99
[2022-02-16] MEDS: METOPROLOL SUCCINATE 50 MG TAB.SR.24H PO SCH (08:05)
[2022-02-16] MEDS: APIXABAN 5 MG TABLET PO SCH ×2 (08:08→17:00)
[2022-02-16 09:00] LABS: BASOPHILS % (AUTO) 0.3 % (0.0-2.0); EOSINOPHILS % (AUTO) 0.3 % (0.0-6.0); HEMATOCRIT 37 % (33-45); LYMPHOCYTES # (AUTO) 0.6 K/uL (0.8-4.8); LYMPHOCYTES % (AUTO) 6.2 % (20.0-44.0); MEAN CORPUSCULAR HGB CONC 33 g/dl (31.0-36.0); MEAN CORPUSCULAR VOLUME 107 fL (82-100); MONOCYTES # (AUTO) 1.1 K/uL (0.1-1.30); MONOCYTES % (AUTO) 10.5 % (2.0-12.0); NEUTROPHILS # (AUTO) 8.5 K/uL (1.8-8.9); NEUTROPHILS % (AUTO) 82.7 % (43.0-81.0); PLATELET COUNT (AUTO) 235 K/uL (150-450); RED BLOOD CELL COUNT(AUTO) 3.41 MIL/uL (4.0-5.2); WHITE BLOOD COUNT (AUTO) 10.2 K/uL (4.3-11.0)
[2022-02-16 09:29] LABS: C-REACTIVE PROTEIN 11.4 mg/dL (0.0-0.9)
[2022-02-16] MEDS: ENSURE ENLIVE 237 ML LIQUID (VANILLA) PO SCH ×3 (10:27→17:00)
[2022-02-16 11:48] LABS: THYROID STIMULATING HORMONE 2.714 uIU/mL (0.358-3.74)
[2022-02-16] MEDS: ACETAMINOPHEN 325 MG TABLET PO PRN (12:50)
--- NOTE | 2022-02-16 17:11 | NUR ---
ASPHALT ROLLER OPERATOR NOTES Pt getting discharge to [facility]. Gave report to Sheri. EMT at bedside ready for picked edge sewing machine operator. Transferred to [facility] safely. IV midline on FATEMEH kept d/t pt continuing IV medications.
[2022-02-16 22:27] LABS: BAND % (MANUAL) 1 % (0.0-5.0); LYMPHOCYTES % (MANUAL) 12 % (16-48); MONOCYTES % (MANUAL) 13 % (0-11.0); NEUTROPHILS % (MANUAL) 74 (42-76)
[2022-02-17 07:07] LABS: IMMUNOGLOBULIN A, SERUM 250 mg/dL (64-422); IMMUNOGLOBULIN G, SERUM 735 mg/dL (586-1602); IMMUNOGLOBULIN M, SERUM 37 mg/dL (26-217)
[2022-02-17 09:07] LABS: *ANA ANTI-CENTROMERE B AB <0.2 AI (0.0-0.9); *ANA ANTI-DNA(DS) AB, QN <1 IU/mL (0-9); *ANA ANTI-JO-1 <0.2 AI (0.0-0.9); *ANA ANTICHROMATIN ANTIBODY <0.2 AI (0.0-0.9); *ANA RNP ANTIBODIES 0.4 AI (0.0-0.9); *ANA SJOGREN'S ANTI-SS-A <0.2 AI (0.0-0.9); *ANA SJOGREN'S ANTI-SS-B <0.2 AI (0.0-0.9); *ANAANTI-SCLERODERMA-70 AB <0.2 AI (0.0-0.9); *ANASMITH AB <0.2 AI (0.0-0.9)
[2022-02-17 11:07] LABS: *SPE A/G RATIO 0.8 (0.7-1.7); *SPE ALPHA-1-GLOBULIN 0.5 g/dL (0.0-0.4); *SPE ALPHA-2-GLOBULIN 0.9 g/dL (0.4-1.0); *SPE BETA GLOBULIN 1.1 g/dL (0.7-1.3); *SPE M-SPIKE Not Observed g/dL (Not Observed)
== END 2022-02-16 17:11 | disposition short-term general hospital (02) | DRG 444 ==
LOC: ER 14:38 → TELE1 21:58 → MEDSG1 23:30
PROVIDERS: ADMIT Student in an Organized Health Care Education/Training Program
PROC: 05H933Z Insertion of Infusion Device into Right Brachial Vein, Percutaneous Approach (ICD-10-PCS; principal; 2022-02-12)
PROC: 05H933Z Insertion of Infusion Device into Right Brachial Vein, Percutaneous Approach (ICD-10-PCS; 2022-02-14)
DX: K83.09 Other cholangitis (principal); K83.1 Obstruction of bile duct; C25.9 Malignant neoplasm of pancreas, unspecified; E87.1 Hypo-osmolality and hyponatremia; E44.0 Moderate protein-calorie malnutrition; C78.7 Secondary malignant neoplasm of liver and intrahepatic bile duct; E72.20 Disorder of urea cycle metabolism, unspecified; C79.51 Secondary malignant neoplasm of bone; C78.00 Secondary malignant neoplasm of unspecified lung; K86.2 Cyst of pancreas; R74.01 Elevation of levels of liver transaminase levels; Z20.822 Contact with and (suspected) exposure to COVID-19; K76.82 Hepatic encephalopathy; I10 Essential (primary) hypertension; I48.91 Unspecified atrial fibrillation; E78.5 Hyperlipidemia, unspecified; Z98.890 Other specified postprocedural states; Z88.0 Allergy status to penicillin; R60.9 Edema, unspecified; C50.912 Malignant neoplasm of unspecified site of left female breast; Z79.01 Long term (current) use of anticoagulants; E88.09 Other disorders of plasma-protein metabolism, not elsewhere classified; K82.8 Other specified diseases of gallbladder; N28.1 Cyst of kidney, acquired
CPT/HCPCS: 36415; 71045-TC; 74181-TC; 76705-TC; 80048-TC; 80053-TC; 80076-TC; 82140-TC; 82607-TC; 82728-TC; 82784; 83540-TC; 83690-TC; 83735-TC; 84100-TC; 84155; 84165; 84439-TC; 84443-TC; 84484-TC; 85025-TC; 85730-TC; 86140-TC; 86225; 86235; 86301; 86334; 86431-TC; 86706; 86803; 87040-TC; 87081-TC; 87340; 93307-TC; 97110-TC; 97116-TC; 97530-TC; C9803; G0378; J1650; J2185; J2405; J7030; U0003